=== PATIENT | female | born 1965 | race Caucasian/White ===

== ENCOUNTER 2022-06-19 09:13 | Outpatient (CLI) | payer OTHER | END 2022-06-19 09:18 | disposition home or self-care (01) | LOC: SONOGRAMA 09:13 | PROVIDERS: ATTEND Pathology Anatomic Pathology & Clinical Pathology | DX: D34 Benign neoplasm of thyroid gland (principal); E07.9 Disorder of thyroid, unspecified; E04.2 Nontoxic multinodular goiter ==